=== PATIENT | male | born 1945 | race Caucasian/White ===

== ENCOUNTER 2017-01-08 09:48 | Outpatient (CLI) | payer MEDICARE, OTHER ==
[~2017-01-08 09:48] MED LIST: ANAFRANIL25 MG ORAL; DEPAKOTE500 MG PO; DESYREL50 MG PO; ENALAPRIL MALEAT5 MG ORAL; GLIPIZIDE-METF1 EACH PO; GLIPIZIDE5 MG ORAL; NAPROXEN375 M2 ORAL; PROSCAR5 MG ORAL; QUETIAPINE FUM200 MG ORAL; QUETIAPINE FUM400 MG ORAL; SEROQUEL XR200 MG ORAL; SIMVASTATIN20 MG ORAL; TAMSULOSIN HCL0.4 MG ORAL; TRAZODONE HCL50 MG ORAL; TRAZODONE HCL50 MG PO; ZETIA10 MG ORAL
--- NOTE | 2017-01-08 16:07 | IOP Daily Group Progress Note ---
IOP Daily Group Progress Note Treatment Plan/Target Problem: Date: January 08, 2017 Problem: impaired thoughts Group Reflections - Sunday: group 3 (11:30am-12:15pm) Therapy Focus/Approach of Group: symptoms Goal(s) of Group: coping tools for symptoms, counteracting negative thinking, identifying strengths, stress reduction, verbalize current thoughts and mood, weekend review Observations: active listening skills, attentive, engaged, participated, positive mood Staff Intervention: assessed for safety/suicidality, assessed pt's current mood , facilitated discussion Staff Intervention: Therapist asked patients to consider current mood and feelings, and to discuss their weekend. Therapist offered patients a safe, comfortable space to express themselves and assessed for HI, SI, and safety. Response/Progress Noted: Patient introduced himself to therapist and group as someone who "draws abstract drawings" and loves to read. He described sharing a name with his grandfather and emigrating from [place] to the [place] when he was [age]. Santana Calvillo BORDER MACHINE OPERATOR January 08, 2017 16:07
--- NOTE | 2017-01-09 14:31 | IOP Daily Group Progress Note ---
IOP Daily Group Progress Note Treatment Plan/Target Problem: Date: January 08, 2017 Problem: depression Group Reflections - Sunday: group 1 (9:40am-10:25am) Therapy Goal(s) of Group: anxiety reduction, coping tools for symptoms, symptom management Observations: open, participated spontaneously Staff Intervention: assisted with identifying symptoms, provided psycho- education, provided redirection Staff Intervention: Explored with pt what mood they are in, what does the mood or feeling trigger from their past, and or what do they do to regulate them self, plus, what do they do for self-care, to help them stay in centered. Response/Progress Noted: " Relaxing helps me as well as coming here to group." FRENCH LEVY January 09, 2017 14:31
--- NOTE | 2017-01-10 16:22 | IOP Daily Group Progress Note ---
IOP Daily Group Progress Note Treatment Plan/Target Problem: Problem: depression Therapy Goal(s) of Group: coping tools for symptoms, coping with change, identify mood Observations: depressed mood, focused Staff Intervention: encouraged patient participation, provided psycho-education , provided client support coordinator Intervention: Explored the various feelings that he has. Supported pt as he identified and process the range of feeling and emptions that make up is life, and his recent days as well as which feelings and emotions he something needs support working through. Response/Progress Noted: " Not too much to say today, things are alright." FRENCH LEVY January 10, 2017 16:21
== END 2017-01-09 11:15 | disposition home or self-care (01) ==
LOC: LAB 09:48
DX: F31.9 Bipolar disorder, unspecified (principal)
CPT/HCPCS: 36415; 80164

== ENCOUNTER 2017-09-19 09:33 | Outpatient (CLI) | payer MEDICARE, OTHER ==
--- NOTE | 2017-09-19 16:27 | IOP Daily Group Progress Note ---
IOP Daily Group Progress Note Treatment Plan/Target Problem: Date: Sep 19, 2017 Problem: impaired thoughts Program: reflections Group Reflections - Sunday: group 1 (9:40am-10:25am) Therapy Focus/Approach of Group: process Goal(s) of Group: goal setting, identify mood, impact of current issues on mood , verbalize current thoughts and mood Observations: engaged, open, participated, self disclosing, responded to prompts, smiled when appropriate Staff Intervention: assessed for safety/suicidality, assessed pt's current mood , encouraged patient participation, facilitated discussion, prompted pt, provided support, reflective listening Staff Intervention: Therapist prompted pt to identify and verbalize their current mood and what they are feeling, the impact of life stressors on current mood and to identify and verbalize one goal they would like to accomplish today or during the rest of the week. Therapist provided a safe space for patients to share and work on their issues. Response/Progress Noted: Pt participated in a therapeutic process group exercise helping the PT to identify and verbalize their current mood, and to identify and verbalize the impact of their current life issues on their mood, and to identify and verbalize one goal they would like to accomplish today or during the week. Pt benefited from the group as evidenced by stating that he is "feeling fine" and is "having a good week" and his goal for the rest of the day and week is to " try not to ruminate". Pt. denied suicidal/homicidal ideation or plan. Mehul Lu Sep 19, 2017 16:26
== END 2017-09-19 11:33 | disposition home or self-care (01) ==
LOC: LAB 09:33
DX: F31.9 Bipolar disorder, unspecified (principal)
CPT/HCPCS: 36415; 80164

== ENCOUNTER 2018-06-10 11:01 | Outpatient (CLI) | payer MEDICARE, OTHER | END 2018-06-10 13:01 | disposition home or self-care (01) | LOC: LAB 11:01 | DX: F32.9 Major depressive disorder, single episode, unspecified (principal) | CPT/HCPCS: 36415; 80164 ==

== ENCOUNTER 2019-05-12 10:25 | Outpatient (CLI) | payer MEDICARE, OTHER ==
[~2019-05-12 10:25] MED LIST changes: +CLOMIPRAMINE HC50 MG PO; +METFORMIN HCL1000 M1 ORAL; +SEROQUEL200 MG ORAL; +VITAMIN D250000 UNI1 ORAL
--- NOTE | 2019-05-12 14:18 | IOP Daily Group Progress Note ---
IOP Daily Group Progress Note Treatment Plan/Target Problem: Date: May 12, 2019 Group Reflections - Sunday: group 1 (9:40am-10:25am) Therapy Goal(s) of Group: socialization skills, stress reduction, support systems, symptom management, verbalize current thoughts and mood Observations: attentive, fidgety, flat affect, participated, responded to prompts Staff Intervention: assessed for safety/suicidality, normalized feelings, provided psycho-education, provided support, reflective listening Staff Intervention: Therapist coordinated a bibliotherapy session using the a Complete the Sentence exercise to identify feelings while providing a safe structure for it expression. Therapist encouraged the patient participation and disclosure of feelings. Response/Progress Noted: Patient participated in aPatient participated in a bibliotherapy learning experience and exercise. Patient was engaged and cooperative during the session and was able to identify main struggles with conflictive feelings and moods. bibliotherapy learning experience and exercise. Patient was engaged and cooperative during the session and was able to identify main struggles with conflictive feelings and moods. MILO MARINELLI May 12, 2019 14:18
== END 2019-05-12 12:25 | disposition home or self-care (01) ==
LOC: LAB 10:25
DX: F31.9 Bipolar disorder, unspecified (principal)
CPT/HCPCS: 36415; 80164

== ENCOUNTER 2019-09-01 10:36 | Outpatient (CLI) | payer MEDICARE, OTHER ==
--- NOTE | 2019-09-01 15:31 | IOP Daily Group Progress Note ---
IOP Daily Group Progress Note Treatment Plan/Target Problem: Date: Sep 01, 2019 Problem: depression Program: reflections Group Reflections - Sunday: group 3 (11:30am-12:15pm) Therapy Focus/Approach of Group: symptoms Goal(s) of Group: communication skills, coping with change, goal setting, identify mood, identifying strengths, improving self esteem, stress reduction Observations: attentive, made insightful comments, participated, relaxed Staff Intervention: assessed pt's current mood, facilitated discussion, facilitated meditation exercise, provided psycho-education, provided support, reflective listening, taught relaxation skills Staff Intervention: The group was led through an exercise where they explored various aspects of their core values. In an effort to understand how core values influence their lives, the group took an assessment quiz which encouraged a discussion on individual strengths and weaknesses. Defined: Core values are governing principles that help make rational decisions consistently. If compromise any core value will become easy to disregard the entire values system. Response/Progress Noted: The patient listened intently to the group members. he reported feeling low, but he participated ans supported everyone with no trouble. ADRIANA MARTINEZ Sep 01, 2019 15:31
== END 2019-09-01 12:36 | disposition home or self-care (01) ==
LOC: LAB 10:36
DX: F31.9 Bipolar disorder, unspecified (principal)
CPT/HCPCS: 36415; 80164

== ENCOUNTER → 2020-01-22 | Outpatient (CLI) | payer MEDICARE, OTHER | END | disposition home or self-care (01) | LOC: LAB 13:50 | DX: F20.9 Schizophrenia, unspecified (principal) | CPT/HCPCS: 36415; 80164 ==